=== PATIENT | female | born 1980 | race Two or more races ===

== ENCOUNTER 2021-03-04 06:02 | Observation (INO) | payer SELFPAY ==
[~2021-03-04] VITALS: Ht 170.2 cm; Wt 107.0 kg
[2021-03-04] VITALS (11 sets, daily range): BP systolic 114–146; BP diastolic 45–84
[~2021-03-04 06:02] MED LIST: HYDROmorphone 2 MG/ML VIAL IVP PRN; IV RINGERS,LACTATED 1000ML 1,000 ML IV SCH; MORPHINE SULFATE 2 MG/ML INJ. IVP PRN; MULT-246 PO; PROCHLORPERAZINE 10 MG/2 ML VIAL. IVP PRN; fentaNYL PF VIAL 100 MCG/2 ML VIAL IVP PRN
[2021-03-04] MEDS ORDERED: ROCURONIUM 50 MG/5 ML VIAL. ONE ×2 (06:28→09:16)
[2021-03-04] MEDS ORDERED: DEXAMETHASONE SOD PHOS 4 MG/ML VIAL ONE ×2 (06:28→09:20)
[2021-03-04] MEDS ORDERED: PROPOFOL 10 MG/ML (20ML) VIAL. IV ONE (06:28)
[2021-03-04] MEDS ORDERED: LIDOCAINE 2% PF 5 ML VIAL. ONE (06:28)
[2021-03-04] MEDS ORDERED: ONDANSETRON PF 4 MG/2 ML VIAL. ONE ×2 (06:28→09:19)
[2021-03-04 07:04] LABS: CALCIUM 8.7 mg/dL (8.5-10.1); CREATININE 0.7 mg/dL (0.6-1.0); GFR 93.2; POTASSIUM 3.6 mmol/L (3.5-5.1)
--- NOTE | 2021-03-04 07:12 | PDOC1 ---
DESIGN DIRECTOR H&P Date of Admission: Date of Admission: History of Present Illness: 40y presents for scheduled surgery. The pt presented to the office on 01/29/21 for eval and tx of heavy bleeding. The pt was initially seen 10/16/20 at [facility] [place]. At that visit she stated that her bleeding was "too much". She has had heavy monthly bleeding for the last 10 yrs. She states that her flow is 8 days, and typically every day is heavy. She has attempted OCPs with a little success but developed chest pain and acne. An IUD was discussed at [facility] [place] with the previous provider, but she declined. She has never had imaging of her pelvis. She does not feel she has much pelvic pain. She does report 2 days of intense cramping. Discussed tx options for menorrhagia and dysmenorrhea. Discussed expectant, medical and surgical management. Discussed the surgical options including Ablation and LAVH. She desired LAVH b/c she does not want to bleed anymore. At the initial visit if felt like her uterus may be larger than average. She also has large incision above her belly button from the open Lisbeth. TVUS performed in the office seem to find the uterus to be of average size. The pt wonders if her ovaries should be removed. Explained that at her age it typica lly was not recommended. Explained oophorectomy appears to increase long-term mortality and cardiovascular risk in patients under the age of 60 who do not take estrogen therapy. In addition to the above, oophorectomy without estrogen therapy, particularly before menopause, also has potential deleterious effects on the risk for chronic kidney disease, cognitive decline, parkinsonism, depression and anxiety, glaucoma, sexual dysfunction, and osteoporotic fractures. PMH: Denies PSH: Lisbeth , BTL , Nose surgery , Tonsils removed , Surgical repair of Pyloric Stenosis Meds: None All: NKDA OBHx: TSVD x 4, SAB x 2 Machine Lacer: monthly periods SH: no tob, no EtOH FH: Diabetes, Hypertension Medications: Meds: Current Medications Medications (Trade) Dose Ordered Sig/Carla Route PRN Reason Start Time Stop Time Status Last Admin Dose Admin Ringer's Solution 1,000 ml @ 30 mls/hr Q24H IV 03/04/21 06:00 03/04/21 17:59 03/04/21 06:43 Allergies: Coded Allergies: No Known Drug Allergies (Unverified , 03/04/21) Physical Exam: Vital Signs: Vital Signs Date Time Temp Pulse Resp B/P (MAP) Pulse Ox O2 Delivery O2 Flow Rate FiO2 03/04/21 06:38 97.8 74 20 99 97.8 03/04/21 06:23 142/84 Room Air PE: GENERAL: No apparent distress. Alert and oriented. HEENT: Head normocephalic, atraumatic. NECK: Supple LUNGS: Clear to auscultation. HEART: RRR, S1, S2 present, pulses intact ABDOMEN: Soft, positive bowel sounds. EXTREMITIES: No cyanosis or edema. NEUROLOGIC: Normal speech, normal tone PSYCHIATRIC: Normal affect, normal mood. SKIN: No ulceration. Labs: Laboratory Tests Test 03/04/21 06:21 03/04/21 06:40 POC Urine HCG, Qualitative Hcg negative (Negative) Sodium Level 138 mmol/L (136-145) Potassium Level 3.6 mmol/L (3.5-5.1) Chloride Level 103 mmol/L (98-107) Carbon Dioxide Level 27 mmol/L (21-32) Anion Gap 8 (6-14) Blood Urea Nitrogen 11 mg/dL (7-20) Creatinine 0.7 mg/dL (0.6-1.0) Estimated GFR (Cockcroft-Gault) 93.2 Glucose Level 105 mg/dL (70-99) H Calcium Level 8.7 mg/dL (8.5-10.1) Laboratory Tests 03/04/21 06:40 Laboratory Tests 03/04/21 06:40 Assessment & Plan: A/P 40y with menorrhagia and dysmenorrhea 1.) Menorrhagia - failed medical management, will schedule LAVH after 02/16/21 2.) Dysmenorrhea - as above 3.) Contraception - BTL 4.) BMI - 37.66 MARCELO HELM MD Mar 04, 2021 07:12
[2021-03-04 07:31] LABS: BASO % 1 % (0-3); EOS # 0.2 x10^3/uL (0.0-0.7); EOS % 3 % (0-3); HEMATOCRIT 32.7 % (36.0-47.0); HEMOGLOBIN 10.5 g/dL (12.0-15.5); LYMPH # 2.6 x10^3/uL (1.0-4.8); LYMPH % 40 % (24-48); MEAN CORPUSCULAR HEMOGLOBIN 25 pg (25-35); MEAN CORPUSCULAR HGB CONC 32 g/dL (31-37); MEAN CORPUSCULAR VOLUME 77 fL (79-100); MONO # 0.4 x10^3/uL (0.0-1.1); MONO % 6 % (0-9); NEUT # 3.3 x10^3/uL (1.8-7.7); NEUT % 50 % (31-73); PLATELET COUNT 264 x10^3/uL (140-400); RED BLOOD COUNT 4.24 x10^6/uL (3.50-5.40); RED CELL DISTRIBUTION WIDTH 15.9 % (11.5-14.5); WHITE BLOOD COUNT 6.5 x10^3/uL (4.0-11.0)
[2021-03-04] MEDS ORDERED: fentaNYL PF VIAL 100 MCG/2 ML VIAL ONE ×2 (07:49→08:23)
[2021-03-04] MEDS ORDERED: METHYLENE BLUE 0.5% 10ml AMPULE. ONE (07:52)
[2021-03-04] MEDS ORDERED: MIDAZOLAM HCL/PF 2 MG/2 ML VIAL. ONE (08:22)
[2021-03-04] MEDS ORDERED: NEOSTIGMINE METHYLSULFATE 5 MG/5 ML SYRINGE. ONE (10:35)
[2021-03-04] MEDS ORDERED: GLYCOPYRROLATE 1 MG/5 ML VIAL. ONE (10:35)
[2021-03-04] MEDS ORDERED: SEVOFLURANE > 120 MINUTES. IH ONE (10:43)
[2021-03-04] MEDS ORDERED: DEXTROSE 50% 25 GM / 50ML DISP.SYRIN. IV PRN (10:45)
[2021-03-04] MEDS ORDERED: diphenhydrAMINE 50 MG/ML VIAL IV PRN (10:45)
[2021-03-04] MEDS ORDERED: MORPHINE SULFATE 2 MG/ML INJ. IV PRN ×2 (10:45)
[2021-03-04] MEDS ORDERED: IBUPROFEN 200 MG TABLET. PO PRN (10:45)
[2021-03-04] MEDS ORDERED: IV NORMAL SALINE 1000ML BAG 1,000 ML IV SCH (10:45)
[2021-03-04] MEDS ORDERED: NALOXONE 0.4 MG/ML VIAL. IV PRN (10:45)
[2021-03-04] MEDS ORDERED: oxyCODONE/APAP 5/325 1 TAB TABLET PO PRN (10:45)
[2021-03-04] MEDS ORDERED: KETOROLAC 15 MG/ML VIAL. IV PRN (10:45)
[2021-03-04] MEDS ORDERED: diphenhydrAMINE HCL 25 MG CAPSULE PO PRN (10:45)
[2021-03-04] MEDS ORDERED: 0.9 % SODIUM CHLORIDE 10 ML DISP.SYRIN. IV PRN (10:45)
[2021-03-04] MEDS ORDERED: MORPHINE SULFATE 2 MG/ML INJ. ONE (11:10)
[2021-03-04] MEDS ORDERED: fentaNYL PF VIAL 100 MCG/2 ML VIAL IVP PRN ×2 (11:15)
[2021-03-04] MEDS ORDERED: HYDROmorphone 2 MG/ML VIAL IVP PRN (11:15)
[2021-03-04] MEDS ORDERED: PROCHLORPERAZINE 10 MG/2 ML VIAL. IVP PRN (11:15)
[2021-03-04] MEDS: MORPHINE SULFATE 2 MG/ML INJ. IVP PRN ×2 (11:15→11:26)
[2021-03-04] MEDS ORDERED: IV RINGERS,LACTATED 1000ML 1,000 ML IV SCH (11:15)
--- NOTE | 2021-03-04 11:16 | PDOC4 ---
OPERATIVE NOTE: PreOp Dx: 1.) Menorrhagia, 2.) Dysmenorrhea PostOp Dx: same Procedure: LAVH/BS Surgeon: Ramone Helm Anesthesia: GETA EBL: 600 cc Fluids: 2200 UOP: 230 cc Findings: Fibroid uterus, nml tubes and ovaries Complications: None Specimen: Uterus, bilateral tubes, and cervix MARCELO HELM MD Mar 04, 2021 11:16
[2021-03-04] MEDS ORDERED: HYDROmorphone 2 MG/ML VIAL ONE (11:26)
--- NOTE | 2021-03-04 11:44 | OP ---
DATE OF SURGERY: 03/04/2021 PREOPERATIVE DIAGNOSES: 1. Menorrhagia. 2. Dysmenorrhea. POSTOPERATIVE DIAGNOSES: 1. Menorrhagia. 2. Dysmenorrhea. PROCEDURE: Laparoscopic-assisted vaginal hysterectomy with bilateral salpingectomy. SURGEON: Bk German MD ANESTHESIA: General endotracheal intubation. ESTIMATED BLOOD LOSS: 600 mL. FLUIDS: 2200 mL. URINE OUTPUT: 230 mL. COMPLICATIONS: None. FINDINGS: Fibroid uterus with normal tubes and ovaries. SPECIMENS: Uterus, tubes and cervix. DESCRIPTION OF PROCEDURE: The patient was taken to the operating room where general endotracheal intubation was obtained without difficulty. The patient was prepped and draped in a normal sterile fashion. Attention was first turned to the vagina where a speculum was placed to visualize the cervix. The anterior lip of the cervix was then grasped with a single tooth tenaculum. An acorn uterine manipulator was then placed in the uterine cavity. At that point, the speculum was removed. A Huntley catheter was then placed in the patient's bladder. Attention was then turned to the abdomen where a 5 mm skin incision was made in her previous umbilical incision. A Veress needle was then introduced into the abdominal cavity. The abdomen was then insufflated to 15 mmHg. At that point, the Veress needle was removed and a 5 mm trocar was placed. Intra-abdominal placement was confirmed with the laparoscope. At that point, a second trocar was then placed on the left approximately two-thirds between the ischial spine and the umbilicus, first by making a 5 mm skin incision, then by placing a 5 mm trocar under direct visualization of the laparoscope. Attention was then turned to the right side where a 5 mm trocar was placed in similar fashion approximately two-thirds between the ischial spine and the umbilicus, first by making a 5 mm skin incision and then placing a 5 mm trocar under direct visualization of the laparoscope. The visualization of the pelvis revealed a fibroid uterus. At that point, attention was then turned to the left tube, which was followed out to the fimbria. The fimbria was then grasped. At that point, the tube was from the ovary with LigaSure device. Once the tube was from the ovary to the level of the uterus, LigaSure device was used to cut through the round ligament on the left. The LigaSure device was then used to serially coagulate and cut to the level of the uterine arteries. At that point, the peritoneum was then undermined to allow further creation of a bladder flap. The bladder flap was then brought to the midline. Few additional bites were then taken of the uterine pedicles on the left with the LigaSure device. At that point, attention was then turned to the right where the right tube was followed out to the fimbria. The fimbria was then grasped. Tube was then from the ovary with the LigaSure device. When the separation had reached the level of the uterus, attention was then turned to the round ligament, which was cut with the LigaSure device. The uterine pedicles were then serially coagulated and cut to the level of the uterine artery. At that point, the peritoneum was undermined to complete the bladder flap. A few additional bites were then taken of the right pedicles. At that point, good hemostasis was noted. The instruments were removed. Attention was then turned to the vagina. At that point, the cervix was circumferentially cut with the Bovie device. At that point, the pubovesical fascia was then dissected from the bladder with Metzenbaum scissors. Once the anterior cul-de-sac was entered, attention was then turned to the posterior cul-de-sac where Sams scissors were then used to enter the peritoneum posteriorly. At that point, a Jyoti clamp was used to grasp the left uterosacral ligament. This was then cut and tagged with 0 Vicryl. This was performed on the right side where the right uterosacral ligament was then grasped with a Jyoti clamp, cut and tagged. Once this was performed, the uterus was serially clamped, cut and tied until all pedicles were free. At that point, the uterus was delivered. Good hemostasis was noted. The vaginal cuff was then closed first by making a mioaaz-tu-[id number] stitch on the left lateral edge with a second pass including the left uterosacral ligament. This was then tagged. Attention was then turned to the right side where the xdxxiq-ou-zusrb stitch was then placed with a second pass including the right uterosacral ligament. Two additional cmswsb-bv-ghocv stitches were used to close the remaining cuff. The cuff was then irrigated. Good hemostasis was noted. At that point, the stitches were cut. Attention was then turned to the abdomen. Once again, the survey of the vaginal cuff laparoscopically revealed good hemostasis. There was an area on the left where a pedicle appeared to be bleeding. This was then grabbed with the LigaSure device and made hemostatic. Also, the serosa where the right tube had been removed from the right ovary was bleeding. A LigaSure device was used to make this hemostatic. At that point, the ureters were observed and found to be peristalsing. The peritoneum was then irrigated again and good hemostasis was noted. At that point, the instruments were removed as well as the trocar. The laparoscopic incisions were then closed with 4-0 Monocryl in an interrupted fashion. The patient tolerated the procedure well and was taken to the recovery room in stable condition. Sponge, laps and needles were correct x 3. Two grams of Ancef were given prior to the procedure. JERSON DR: Cristobal TID: [id number] [facility]OSPITALPeter
--- NOTE | 2021-03-04 15:18 | NUR ---
Dr. German into check on pt for a post op evaluation. Pt ambulating back to bed with asst post trying unsuccessfully to have BM. scant amount of vag bleeding noted in toilet water.
[2021-03-04] MEDS: KETOROLAC 30 MG/ML VIAL. IVP PRN ×2 (16:00→21:09)
[2021-03-04] MEDS: oxyCODONE/APAP 5/325 1 TAB TABLET PO PRN (20:05)
[2021-03-04] MEDS: IV DEXTROSE 5 %-0.45 % NACL 1,000 ML IV SCH ×2 (21:00→22:43)
[2021-03-04] MEDS: DOCUSATE SODIUM 100 MG CAPSULE. PO SCH (21:41)
[2021-03-05 01:30] VITALS: BP 122/66
[2021-03-05 05:33] VITALS: BP 134/66
[2021-03-05] MEDS: KETOROLAC 30 MG/ML VIAL. IVP PRN (05:35)
[2021-03-05 06:29] LABS: BASO % 0 % (0-3); EOS % 0 % (0-3); HEMATOCRIT 28.5 % (36.0-47.0); HEMOGLOBIN 9.3 g/dL (12.0-15.5); LYMPH # 2.6 x10^3/uL (1.0-4.8); LYMPH % 30 % (24-48); MEAN CORPUSCULAR HEMOGLOBIN 25 pg (25-35); MEAN CORPUSCULAR HGB CONC 33 g/dL (31-37); MEAN CORPUSCULAR VOLUME 77 fL (79-100); MONO # 0.5 x10^3/uL (0.0-1.1); MONO % 6 % (0-9); NEUT # 5.7 x10^3/uL (1.8-7.7); NEUT % 64 % (31-73); PLATELET COUNT 262 x10^3/uL (140-400); RED BLOOD COUNT 3.69 x10^6/uL (3.50-5.40); RED CELL DISTRIBUTION WIDTH 15.8 % (11.5-14.5); WHITE BLOOD COUNT 8.9 x10^3/uL (4.0-11.0)
[2021-03-05 06:58] LABS: CALCIUM 8.3 mg/dL (8.5-10.1); CREATININE 0.8 mg/dL (0.6-1.0); GFR 79.9; POTASSIUM 3.7 mmol/L (3.5-5.1)
[2021-03-05] MEDS ORDERED: FLU VACC QUAD 21-22 (6MOS+) PF 0.5 ML SYRINGE. VAX IM ONE (09:00)
[2021-03-05] MEDS: DOCUSATE SODIUM 100 MG CAPSULE. PO SCH (09:09)
[2021-03-05 09:20] VITALS: BP 118/52
--- NOTE | 2021-03-05 09:24 | PDOC ---
LATENT FINGERPRINT EXAMINER PROGRESS NOTE Date of Service: DATE: 03/05/21 TIME: 09:24 Subjective: Pt with good pain control. Aaron PO. Voiding. Minimal VB Objective: Vital Signs: Vital Signs Date Time Temp Pulse Resp B/P (MAP) Pulse Ox O2 Delivery O2 Flow Rate FiO2 03/04/21 10:46 Mask 8 03/04/21 10:46 99.2 80 15 139/37 100 99.2 Vital Signs Date Time Temp Pulse Resp B/P (MAP) Pulse Ox O2 Delivery O2 Flow Rate FiO2 03/05/21 05:33 98.3 69 18 134/66 (88) 97 Room Air 98.3 03/04/21 11:02 8 Labs: Laboratory Tests Test 03/05/21 06:10 White Blood Count 8.9 x10^3/uL (4.0-11.0) Red Blood Count 3.69 x10^6/uL (3.50-5.40) Hemoglobin 9.3 g/dL (12.0-15.5) L Hematocrit 28.5 % (36.0-47.0) L Mean Corpuscular Volume 77 fL (79-100) L Mean Corpuscular Hemoglobin 25 pg (25-35) Mean Corpuscular Hemoglobin Concent 33 g/dL (31-37) Red Cell Distribution Width 15.8 % (11.5-14.5) H Platelet Count 262 x10^3/uL (140-400) Neutrophils (%) (Auto) 64 % (31-73) Lymphocytes (%) (Auto) 30 % (24-48) Monocytes (%) (Auto) 6 % (0-9) Eosinophils (%) (Auto) 0 % (0-3) Basophils (%) (Auto) 0 % (0-3) Neutrophils # (Auto) 5.7 x10^3/uL (1.8-7.7) Lymphocytes # (Auto) 2.6 x10^3/uL (1.0-4.8) Monocytes # (Auto) 0.5 x10^3/uL (0.0-1.1) Eosinophils # (Auto) 0.0 x10^3/uL (0.0-0.7) Basophils # (Auto) 0.0 x10^3/uL (0.0-0.2) Sodium Level 136 mmol/L (136-145) Potassium Level 3.7 mmol/L (3.5-5.1) Chloride Level 102 mmol/L (98-107) Carbon Dioxide Level 26 mmol/L (21-32) Anion Gap 8 (6-14) Blood Urea Nitrogen 9 mg/dL (7-20) Creatinine 0.8 mg/dL (0.6-1.0) Estimated GFR (Cockcroft-Gault) 79.9 Glucose Level 116 mg/dL (70-99) H Calcium Level 8.3 mg/dL (8.5-10.1) L Laboratory Tests 03/05/21 06:10 Laboratory Tests 03/05/21 06:10 Laboratory Tests 03/05/21 06:10 Physical Exam: GENERAL: No apparent distress. Alert and oriented. HEENT: Head normocephalic, atraumatic. NECK: Supple LUNGS: Clear to auscultation. HEART: RRR, S1, S2 present, pulses intact ABDOMEN: Soft, positive bowel sounds. EXTREMITIES: No cyanosis or edema. NEUROLOGIC: Normal speech, normal tone PSYCHIATRIC: Normal affect, normal mood. SKIN: No ulceration. CTAB RRR S/NT/ND Inc: dressing dry No C/C/E Assessment & Plan: A/P 40y POD #1 s/p LAVH 1.) PO doing well 2.) Path pending 3.) Indications - menorrhagia and dysmenorrhea 4.) Anemia Hgb 10.5 -> 9.3 5.) Cont PO care MARCELO HELM MD Mar 05, 2021 09:24
[2021-03-05] MEDS ORDERED: OXYC1TAB15 PO (09:26)
--- NOTE | 2021-03-05 10:16 | DS ---
DATE OF DISCHARGE: 03/05/2021 ADMISSION DIAGNOSES: 1. Menorrhagia. 2. Dysmenorrhea. DISCHARGE DIAGNOSES: 1. Menorrhagia. 2. Dysmenorrhea. PROCEDURE: Laparoscopic-assisted vaginal hysterectomy. BRIEF HOSPITAL COURSE: The patient is a 40-year-old 6, para 4-0-2-4, who presented for scheduled surgery. The patient had presented to the office on 01/29/2021 for treatment of her heavy bleeding. The patient ultimately decided to undergo LAVH. The patient underwent said procedure on 03/04/2021. See operative note for full detail. By postop day #2, the patient was meeting all discharge criteria and subsequently discharged home. Of note, the patient's hemoglobin on admission was 10.5 and postoperatively was found to be 9.3. DISCHARGE INSTRUCTIONS: The patient was told not to lift anything greater than 20 pounds, have pelvic rest for 6 weeks, not to drive on narcotics. CALL IF: The patient was to call if she had fevers, chills, nausea, vomiting, abdominal pain or any additional questions or concerns. FOLLOWUP APPOINTMENT: The patient was to follow up on 03/12/2021 at 9:00 a.m. for a visit. DISCHARGE MEDICATIONS: The patient was given a prescription for Percocet 5, 15 pills; Motrin 800 mg, 30 pills; and Colace 100 mg, [address]: Cristobal TID: [id number]
[2021-03-05] MEDS: oxyCODONE/APAP 5/325 1 TAB TABLET PO PRN (10:43)
[2021-03-05 10:45] VITALS: BP 145/64
--- NOTE | 2021-03-06 18:08 | PATHOLOGY ---
[facility] Accession Number: [id number] . 01 Material submitted: . uterus - UTERUS, TUBES, CERVIX. Modifiers: TUBES, CERVIX . 01 Clinical history: . CHASITY DONG . 02 Diagnosis: Uterus and attached bilateral fallopian tubes, laparoscopic assisted vaginal hysterectomy wit bilateral salpingectomy: - Adenomyosis, uterine corpus, with myometrial hypertrophy (uterine weight 228 grams). - Leiomyoma, uterine corpus, measuring 2.4 cm in greatest dimension. - Interval-early secretory endometrium. - Chronic cervicitis, focal, with few Nabothian cysts. - Left paratubal cystic endometriosis, focal, and small left paratubal cyst. - Right paratubal cystic endometriosis. (JPM:moni; 03/06/2021) [facility] [place] 03/06/2021 1658 Local . 02 Comment: There is no atypia or evidence of malignancy. (JPM:moni; 03/06/2021) . 02 Electronically signed: . Edgar Dyer MD, Pathologist NPI- [id number] . 01 Gross description: . Fixative: Formalin Labeled: Uterus, tubes, cervix Specimen received: Uterus with attached cervix and attached bilateral fallopian tubes Uterus weight: 228 g Uterus: 13.3 x 7.9 x 5.2 cm Serosa: Verandah-prince, smooth Ectocervix: Pale prince, smooth to pink-prince, disrupted Cervical os: Slight-like, measuring 1.3 cm Endocervical canal: 3.6 cm Endometrial cavity: 6.8 x 4.4 cm Endometrium: Pale prince, glistening, lush Endometrial thickness: 0.1 cm Myometrium: Prince-pink, trabeculated Myometrium thickness: Up to 2.7 cm Lesions/abnormalities: A single intramural fibroid measuring 2.4 cm, as well as a slight amount of possible adenomyosis Left fallopian tube: 5 g, fimbriated; 6.0 cm in length, up to 0.8 cm in diameter with an attached paratubal cyst measuring 0.5 cm Left fallopian tube cut surface: Pinpoint to patent lumen Right fallopian tube: 8 g, fimbriated; 6.6 cm in length, up to 1.0 cm in diameter with a cystic structure within the middle of the fallopian tube measuring 2.5 x 1.8 x 1.0 cm Right fallopian tube cut surface: Pinpoint to dilated lumen . Certified Nurse Operating Room sections are submitted as follows: A1 12:00 cervix A2 6:00 cervix A3 anterior endomyometrium with possible adenomyosis A4 posterior endomyometrium A5 retail customer service representative sections of fibroid A6 retail customer service representative sections from left fallopian tube, to include fimbria A7-A9 retail customer service representative sections from right fallopian tube, to include fimbria (CAA; 03/05/2021) QA/MERGED WITH [facility] 03/05/2021 08 Local . 02 Pathologist provided ICD-10: N80.0, D25.9, N72 . 02 CPT . 376519 Specimen Comment: A courtesy copy of this report has been sent to [phone] Specimen Comment: Report sent to Performed at: 01 [facility] [address], [place] [id number] MD Yonathan Ramirez MD Phone: [phone] Performed at: 02 [facility] [address] [place], [place] [id number] MD Edgar Dyer MD Phone: [phone]
== END 2021-03-05 11:00 | disposition home or self-care (01) ==
LOC: SURG 06:02 → 3 SO LND 10:43
PROVIDERS: ADMIT Obstetrics & Gynecology; ATTEND Obstetrics & Gynecology
DX: N92.0 Excessive and frequent menstruation with regular cycle (principal); N94.6 Dysmenorrhea, unspecified; D25.9 Leiomyoma of uterus, unspecified; Z23 Encounter for immunization; Z79.899 Other long term (current) drug therapy
CPT/HCPCS: 36415; 58552; 80048; 81025; 85025; 86850; 86900; 86901; 90471; 90686; 96374; 96376; A4314; A4930; G0378; J0690; J1100; J1170; J1885; J2250; J2270; J2405; J2704; J2710; J3490; 88307; A4223; A4322; A4452; A4657; G0379; J3010; Q9968